=== PATIENT | female | born 1970 | race Caucasian/White ===

== ENCOUNTER 2017-05-02 08:57 | Observation (INO) | payer MEDICAID ==
[~2017-05-02] VITALS: Ht 170.2 cm; Wt 50.0 kg
--- NOTE | 2017-05-02 10:45 | NUR ---
PT TO ROOM 2226 FROM [facility]. PT VERY DROWSY AND WITHOUT NAUSEA/ VOMITING AT PRESENT.SHE DENIES NEEDS,BUT WISHES TO SHOWER. ASSESSMENT PER FLOW SHEET.CALL LIGHT IN REACH.
[2017-05-02] MEDS ORDERED: SEROQUEL200 MG PO (10:47)
[2017-05-02] MEDS ORDERED: REQUIP1 MG PO (10:48)
[2017-05-02] MEDS ORDERED: ESTRACE1 MG (10:48)
[2017-05-02 11:27] VITALS: BP 151/79; Ht 170.2 cm; Wt 50.0 kg
[2017-05-02 12:16] VITALS: BP 151/79
[2017-05-02 12:39] LABS: BASOPHILS 0.1 % (0-2); EOSINOPHILS 0 % (0-7); HEMOGLOBIN 13.9 g/dL (12-16); IMMATURE GRANULOCYTES 0.3 % (0-5); LYMPHOCYTES 14.6 % (15-50); MCH 33.2 pg (26.0-34.0); MCHC 33.1 g/dL (31.0-37.0); MCV 100.2 fL (80.0-100.0); MEAN PLATELET VOLUME 11.1 fL (7.4-10.4); MONOCYTES 4.8 % (2-11); NEUTROPHILS 80.2 % (40-80); PLATELET COUNT 176 10x3/uL (130-400); RBC 4.19 10x6/uL (4.00-5.40); RDW 12.6 % (11.5-14.5); WBC 10.4 10x3/uL (4.8-10.8)
[2017-05-02 12:52] LABS: ALKALINE PHOSPHATASE 64 U/L (46-116); ALT (SGPT) 20 U/L (10-68); AMYLASE - SERUM 26 U/L (25-115); BILIRUBIN - TOTAL 0.44 mg/dL (0.2-1.3); CALC OSMOLALITY 275 mosm/kg (275-300); CARBON DIOXIDE 30.4 mmol/L (21.0-32.0); CHLORIDE - SERUM 99 mmol/L (98-107); CREATININE - SERUM 0.8 mg/dL (0.6-1.3); GLUCOSE 118 mg/dL (74-106); LIPASE 95 U/L (73-393); POTASSIUM - SERUM 3.8 mmol/L (3.5-5.1); PROTEIN - SERUM 8.1 g/dL (6.4-8.2); SODIUM 137 mmol/L (136-145); UREA NITROGEN 15 mg/dL (7-18); eGFR NON AFRICAN AMERICAN 82 mL/min (90-120)
[2017-05-02 15:53] VITALS: BP 97/53
--- NOTE | 2017-05-02 19:08 | NUR ---
RECIEVED SITTING UP IN BED WITH IV TO RIGHT FA. NS AT 100CC/HR. AWARE OF NPO STATUS AFTER MN. DENIES ANY N/V AT THIS TIME. STATES IT'S MUCH BETTER.
[2017-05-02 20:00] VITALS: BP 128/62
[2017-05-03] VITALS (7 sets, daily range): BP systolic 105–163; BP diastolic 58–86
[2017-05-03 05:27] LABS: BASOPHILS 0.6 % (0-2); EOSINOPHILS 0.8 % (0-7); HEMOGLOBIN 12.2 g/dL (12-16); IMMATURE GRANULOCYTES 0.1 % (0-5); LYMPHOCYTES 44.1 % (15-50); MEAN PLATELET VOLUME 10.4 fL (7.4-10.4); MONOCYTES 11.7 % (2-11); NEUTROPHILS 42.7 % (40-80); PLATELET COUNT 170 10x3/uL (130-400); RDW 12.7 % (11.5-14.5)
[2017-05-03 05:30] LABS: WBC 7.1 10x3/uL (4.8-10.8)
[2017-05-03 05:42] LABS: INR 1.09 (0.85-1.17)
[2017-05-03 05:44] LABS: ALBUMIN 3.1 g/dL (3.4-5.0); ALKALINE PHOSPHATASE 45 U/L (46-116); ALT (SGPT) 16 U/L (10-68); BILIRUBIN - TOTAL 0.66 mg/dL (0.2-1.3); CARBON DIOXIDE 25.4 mmol/L (21.0-32.0); CHLORIDE - SERUM 108 mmol/L (98-107); CREATININE - SERUM 0.6 mg/dL (0.6-1.3); GLUCOSE 98 mg/dL (74-106); LIPASE 156 U/L (73-393); PROTEIN - SERUM 6.3 g/dL (6.4-8.2); SODIUM 140 mmol/L (136-145); eGFR NON AFRICAN AMERICAN > 90 mL/min (90-120)
[2017-05-03 05:48] LABS: AMYLASE - SERUM 34 U/L (25-115); CALC OSMOLALITY 277 mosm/kg (275-300); POTASSIUM - SERUM 3.1 mmol/L (3.5-5.1); UREA NITROGEN 10 mg/dL (7-18)
--- NOTE | 2017-05-03 07:35 | NUR ---
PT AOX4 RESP EVEN AND NONLABORED PT DENIES NEEDS AT THIS TIME IV TO RIGHT FOREARM PATENT AND INTACT AT THIS TIME SRX2 BED AT LOWEST SETTING CALL LIGHT WITHIN REACH WILL CONTINUE TO MONITOR
--- NOTE | 2017-05-03 10:57 | NUR ---
PT LEFT FOR EGD AT THIS TIME VIA [facility]ALEE AND GI STAFF
--- NOTE | 2017-05-04 00:04 | NUR ---
RN NOTE: PT RESTING QUIETLY AT THIS TIME WITH EYES CLOSED AND EVEN RESPIRATIONS. IV IN RIGHT FA PATENT WITH NS INFUSING AT 100 ML / HR, AND ZOFRAN INFUSING AT 4.7 ML / HR. WILL CONTINUE TO MONITOR FOR NEEDS.
[2017-05-04 04:00] VITALS: BP 104/60
[2017-05-04 05:20] LABS: BASOPHILS 0.2 % (0-2); EOSINOPHILS 0.5 % (0-7); HEMATOCRIT 35.2 % (36.0-48.0); HEMOGLOBIN 11.8 g/dL (12-16); IMMATURE GRANULOCYTES 0.1 % (0-5); LYMPHOCYTES 38.9 % (15-50); MCH 33.1 pg (26.0-34.0); MCHC 33.5 g/dL (31.0-37.0); MCV 98.9 fL (80.0-100.0); MEAN PLATELET VOLUME 10.7 fL (7.4-10.4); MONOCYTES 9.6 % (2-11); NEUTROPHILS 50.7 % (40-80); PLATELET COUNT 161 10x3/uL (130-400); RBC 3.56 10x6/uL (4.00-5.40); RDW 12.4 % (11.5-14.5); WBC 8.6 10x3/uL (4.8-10.8)
[2017-05-04 05:34] LABS: ALBUMIN 2.9 g/dL (3.4-5.0); ALKALINE PHOSPHATASE 49 U/L (46-116); ALT (SGPT) 14 U/L (10-68); CALC OSMOLALITY 288 mosm/kg (275-300); CALCIUM 7.9 mg/dL (8.5-10.1); CARBON DIOXIDE 27.2 mmol/L (21.0-32.0); CHLORIDE - SERUM 111 mmol/L (98-107); CREATININE - SERUM 0.6 mg/dL (0.6-1.3); GLUCOSE 108 mg/dL (74-106); PROTEIN - SERUM 5.7 g/dL (6.4-8.2); SODIUM 145 mmol/L (136-145); UREA NITROGEN 9 mg/dL (7-18); eGFR NON AFRICAN AMERICAN > 90 mL/min (90-120)
[2017-05-04 05:36] LABS: POTASSIUM - SERUM 2.9 mmol/L (3.5-5.1)
--- NOTE | 2017-05-04 05:47 | NUR ---
PATIENT K+ WAS 2.9 cl, PLACED ON ELECTROLYTE PROTOCOL
--- NOTE | 2017-05-04 07:15 | NUR ---
RECEIVED REPORT. ASSUMED CARE OF PATIENT. CALL LIGHT WITHIN REACH. PATIENT RESTING WITH EYES CLOSED, EASILY AROUSED. DENIES N/V THIS AM. PATIENT STATES THAT SHE FEELS OKAY AT THIS TIME. NO DISTRESS. IV FLUIDS INFUSING ORDERED.
--- NOTE | 2017-05-04 08:23 | NUR ---
K+ RIDER #1 HUNG AT THIS TIME. NO DISTRESS.
[2017-05-04 10:07] VITALS: BP 117/67
--- NOTE | 2017-05-04 12:00 | NUR ---
PATIENT HAS COMPLETED GASTRIC EMPTYING SO ABLE TO HAVE PO FLUIDS. PATIENT HAS RECIEVED 20 MEQ VIA IV WHILE NPO (2, 10MEQ RIDERS) AND NOW 20MEQ ADMINISTERED PO. PATIENT INSTRUCTED IN 2 HOURS WE WILL REPEAT 20MEQ OF POTASSIUM AND REDRAW FOR K+ LEVEL.
[2017-05-04] MEDS ORDERED: OMEPRAZOLE20 M1 PO (14:57)
[2017-05-04] MEDS ORDERED: PEPCID AC20 MG PO (14:58)
[2017-05-04 15:23] VITALS: BP 118/68
--- NOTE | 2017-05-04 16:20 | NUR ---
K+ 4.1 AFTER RECEIVING EP REPLACEMENT THERAPYL
--- NOTE | 2017-05-04 16:21 | NUR ---
K+ 4.1 AFTER RECEIVING EP THERAPY.
--- NOTE | 2017-05-04 18:17 | NUR ---
1755 20 GAUGE IV REMOVED FROM RIGHT FOREARM. CATHETER TIP INTACT. NO BLEEDING FROM SITE. 2X2 GAUZE APPLIED AND SECURED WITH TAPE. TOLERATED IV REMOVAL WELL. 1805 DISCHARGE INSTRUCTIONS PROVIDED TO PATIENT AND HER . 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 VERBALIZED UNDERSTANDING OF ALL INSTRUCTIONS PROVIDED. 1810 PATIENT LEFT UNIT IN WHEELCHAIR. PATIENT DISCHARGED TO HOME VIA PRIVATE CARE WITH HER . PATIENT LEFT UNIT IN NO DISTRESS. PATIENT LEFT UINT WITH ALL PERSONAL BELONGINGS.
== END 2017-05-04 18:15 | disposition home or self-care (01) ==
LOC: D.MS 08:57 → OBSVTIME 09:07 → D.MS 09:07
PROVIDERS: Internal Medicine Gastroenterology; ADMIT Family Medicine
DX: K29.70 Gastritis, unspecified, without bleeding (principal); K22.10 Ulcer of esophagus without bleeding; K44.9 Diaphragmatic hernia without obstruction or gangrene; K29.80 Duodenitis without bleeding; F32.9 Major depressive disorder, single episode, unspecified; G25.81 Restless legs syndrome; F17.203 Nicotine dependence unspecified, with withdrawal; R10.9 Unspecified abdominal pain; D64.9 Anemia, unspecified; F12.929 Cannabis use, unspecified with intoxication, unspecified